=== PATIENT | male | born 1960 | race Caucasian/White ===

== ENCOUNTER 2018-06-14 09:42 | Emergency (ER) | payer SELFPAY ==
[2018-06-14] MEDS ORDERED: Ketorolac Tromethamine 60 MG/2 ML VIAL ONE (10:18)
--- NOTE | 2018-06-14 10:37 | RAD ---
PA CHEST AND LEFT RIBS FOUR VIEWS TOTAL: INDICATIONS: Trauma with injury and pain to left chest. FINDINGS: The lungs appear clear on the PA projection. No pneumothorax or effusion is seen. There is slight c ortical buckling and irregularity involving the anterolateral left sixth rib. This could potentially represent a subtle nondisplaced fracture. The ribs are otherwise unremarkable. IMPRESSION: Question nondisplaced fracture, anterolateral left sixth rib. POS: [id number]
== END 2018-06-14 11:20 | disposition home or self-care (01) ==
LOC: ERS 09:42
DX: S22.32XA Fracture of one rib, left side, initial encounter for closed fracture (principal); I10 Essential (primary) hypertension; F17.210 Nicotine dependence, cigarettes, uncomplicated; Z79.899 Other long term (current) drug therapy; W19.XXXA Unspecified fall, initial encounter
CPT/HCPCS: 96372; J1885